=== PATIENT | female | born 1995 | race Caucasian/White ===

== ENCOUNTER → 2021-03-08 | Outpatient (CLI) | payer OTHER, SELFPAY | END | disposition home or self-care (01) | LOC: LABSPEC 03-09 09:50 | PROVIDERS: Visit Provider Obstetrics & Gynecology | DX: Z36.85 Encounter for antenatal screening for Streptococcus B (principal) | CPT/HCPCS: 87081 ==

== ENCOUNTER 2021-04-01 07:40 | Outpatient (CLI) | payer SELFPAY, OTHER ==
[2021-04-01 07:50] VITALS: BMI 29.2
[2021-04-01 08:03] VITALS: BP 124/81; PULSE 83; TEMP 36.3
[2021-04-01 08:04] VITALS: BP 124/81; PULSE 83; TEMP 36.3; O2SAT 100
[2021-04-01 10:23] VITALS: BP 127/85; PULSE 75; TEMP 36.3
--- NOTE | 2021-04-03 09:49 | OB.TRI.NOTE ---
HPI - General HPI Narrative CARTER ARIAS, is a 25 F who presents at 39 weeks 3-day gestation with contractions concerned that she might be in labor. care has been remarkable for a prior section and she desires to have a vaginal after . PFSH PFSH Allergy/AdvReac Type Severity Reaction Status Date / Time No Known Allergies Allergy Verified 04/01/21 07:51 NST FHR Rate Baby A NST Reactive:: Yes FHR Category:: Category I Uterine Activity:: Marked activity noted but diminished over several hours Assessment & Plan (1) False labor, antepartum: PLAN: 39 weeks 3 days gestation with false labor. Reactive nonstress test. No change in cervix after monitoring for several hours and contractions decreased. Discharged home with routine labor instructions.
== END 2021-04-01 11:50 | disposition home or self-care (01) ==
LOC: WPOUT 07:49 → WP 07:50
PROVIDERS: Visit Provider Obstetrics & Gynecology
DX: O47.1 False labor at or after 37 completed weeks of gestation (principal); O34.219 Maternal care for unspecified type scar from previous cesarean delivery; Z3A.39 39 weeks gestation of pregnancy
CPT/HCPCS: 59025; 59050; 99218; G0378

== ENCOUNTER 2021-04-08 05:00 | Inpatient (IN) | payer SELFPAY, OTHER ==
[2021-04-08] VITALS (16 sets, daily range): BP systolic 96–124; BP diastolic 56–85; PULSE 64–99; RESP 14–18; TEMP 36.6–37.2; O2SAT 94–100; BMI 29.3
[2021-04-08] MEDS: Lactated Ringers 1,000 ML 999 ML IV (05:30)
[2021-04-08 05:53] LABS: Absolute Lymphocyte Count 1.96 X10^3/uL (0.83-4.51); Absolute Neutrophil Count 4.9 X10^3/uL (2.0-7.7); Basophil# 0.03 X10^3/uL; Basophil% 0.4 % (0-1); Eosinophil# 0.04 X10^3/uL; Eosinophils% 0.5 % (0-5); Hemoglobin 13.1 g/dL (12.0-15.0); Lymphocyte # 1.96 X10^3/ul (0.83-4.51); Lymphocyte % 26.6 % (19-41); Mean Corp Hgb Conc 34.5 g/dL (32-36); Mean Corpuscular Hgb 32.8 pg (27.0-32.0); Mean Corpuscular Volume 95.2 fL (81-99); Mean Platelet Vol. 12.1 fl (6.2-12.0); Monocyte% 5.4 % (0-10); NRBC Flagged by Analyzer 0 % (0-5); Neutrophil # 4.91 X10^3/uL (2.7-7.7); Neutrophil % 66.6 % (47-70); Platelet Count 165 K/mm3 (150-450); RBC Distribution Width CV 13.4 % (11.6-14.6); RBC Distribution Width SD 46.8 fl (35.1-43.9); Red Blood Count 3.99 M/mm3 (4.2-5.4); White Blood Count 7.4 K/mm3 (4.4-11.0)
[2021-04-08] MEDS: Acetaminophen 500 MG Tablet 1000 MG PO ×4 (06:39→23:25)
[2021-04-08] MEDS: Lactated Ringers 1,000 ML 150 ML IV (06:41)
[2021-04-08] MEDS: Sodium Citrate/Citric Acid 30 ML UDC PO (06:41)
--- NOTE | 2021-04-08 07:27 | PCM.HP.BLA ---
History and Physical Date of Admission: 04/08/21 [facility] [place] PHYSICAL [place]04/08/2021) Name: CARTER ARIAS History of this : This is a 25 year old [id number] presents at 40 wks + 3 days gestation for repeat . OB Physician: Lang Anguiano MD [place]'s Physician: Dr. Dc ...................................................................... : 1995 Age: 25 Address: [address] [place] [address] Phone: H) [phone] Insurance Carrier: [employer] [id number] Emergency Contact: ALVIN HUGO [phone] ...................................................................... Final ARMANDO: 04/05/21 By Ultrasound: PARITY: (G-Total Pregnancies P-Fullterm,Premature,Induced AB,Spont AB, Ectopics, Multiple,Living) ARMANDO CONFIRMATION: By LMP: 06/29/20 Final ARMANDO: 04/05/21 OB PROBLEM LIST: Daughter PKU Positive is Rh Negative (Result scanned) Does NOT need Rhogam Wants --then decided to have repeat ALLERGIES: No Known Allergies MEDICATIONS: [place] 3-6-9 Fatty Acids 400 mg-400 mg-200 mg capsule One capsule by mouth daily Tablet 28 mg iron-800 mcg One tablet by mouth daily SOCIAL HISTORY: Smoking - denies smoking Alcohol Use - denies drinking Diet - balanced Diet Exercise - none Employer - [employer] Job Description - Illicit Drug Use - denies use of street drugs Sexual Activity - Spouse-Sig Other Name - Erik Arias Spouse-Sig Other Occupation - Construction Spouse-Sig Other Phone No - W [phone] Children Name(s) - Rima + Shasha (Twins) 2019 PRIOR DELIVERY HISTORY DEL DATE GEST LAB WT LB WT OZ TYPE ANES LABOR TX 01 Oct 20 8 0 0 0 Vag unknown No 18 Apr 19 37 0 7 1 C-Sec Spinal No ANTEPARTUM FLOW CHART VISIT GE RTC FU F F NE U U DATE WK MD WKS HT PN HR M SS BP ED WT NE GL D EF ST __ ____ ___ __ __ ___ __ __ __ ___ __ __ __ ___ __ Apr JMW 1 37 V + + 104/62 sl 166 - - 4 75 -2 Mar JMW 1 38 V + + 120/70 sl 166 - - 1+ 50 -2 Mar JMW 1 38 + + 110/62 sl 165 - - S Mar JMW 1 37 + + 100/62 sl 162 - - 07 Mar JMW 1 36 V + + 110/64 sl 158 tr - ft 50 -2 Jan JMW 2 34 + + 114/66 sl 162 - - Jan JMW 3 31 + + 92/60 0 156 - - 12 Jan 27 JMW 3 28 + + 115/76 0 149 - 1+ Nov 21 JMW 5 22 + + 114/68 0 145 - - ANTEPARTUM NOTE(S): Apr 05 2021: Ctxs-occas, Low Pressure Mar 31 2021: Ctxs-occas, Good FM Mar 22 2021: doing well, Good FM Mar 15 2021: doing well, declines cervix check Mar 08 2021: Doing well, GBS and LARC today Feb 22 2021: doing well, swelling RLE>LLE Feb 01 2021: Good FM,Feeling Well Jan 11 2021: CBC,OGCt & Antibody Screen Drawn Today,Good FM Nov 30 2020: Doing Well, Glucola given COMPREHENSIVE ANTEPARTUM NOTE(S): Mar 22 2021: Carter is 38weeks, here for PNV. Positve movement. slight edema. Doing well. no questions or complaints. BR Mar 14 2021: H taken to OB. tkg Jan 11 2021: Carter presents here today at 28 wks with Good FM and due for 50 gm OGCT, CBC and Antibody screen, with same drawn without problems via undersigned with 23g x 1 attempt. No Rhogam needed as her spouse is Rh Negative as well with result scanned to chart. BARB Nov 30 2020: NOB TELE VISIT this morning. Carter is a 25 yr old Gr 3, P2 (Twins), SAB 1 new pt to our practice as a referral from Dr Lang Dc. She is an lives w/he and their twin daughters. Hx regular monthly periods and by LMP 06/29/20 (best guess), she would be 22 wks. States she thinks she first felt FM 18-19 wks, feeling FM daily now. Hx C/S 07/18/18. Twin gestation, twin A Breech REVIEW OF SYSTEMS: GENERAL - Denies fever, or chills SKIN - Denies rash, new skin lesions, or change in moles EYES - Denies blurred vision, or change in visual acuity EARS - Denies ear pain, or difficulty hearing NOSE - Denies nasal congestion, discharge, or bleeding MOUTH - Denies sore throat, or difficulty swallowing NECK - Denies pain or swelling RESPIRATORY - Denies shortness of breath, cough, wheezing CARDIOVASCULAR - Denies palpitations, chest pain, orthopnea, PND, peripheral edema, syncope or claudication GASTROINTESTINAL - Denies nausea, vomiting, diarrhea, constipation, Denies abdominal pain, melena and or bright red blood GENITOURINARY - Denies dysuria, frequency of urination, urgency, or hesitancy MUSCULOSKELETAL - Denies joint or muscle pain, or back pain NEUROLOGICAL - Denies localized numbness, weakness, or tingling PSYCHIATRIC - Denies depression, anxiety, substance abuse or suicide attempts ENDOCRINE - Denies heat or cold intolerance, weight loss or gain, increasing thirst HEMATO-IMMUNOLOGIC - Denies easy bruising, bleeding, oral ulcerations or recurrent infections GENETICS SCREENING: Age 35+ years: No Thalassemia: No Neural Tube Defect: No Down Syndrome: No JENNIFER-SACHS: No Sickle Cell Disease: No Hemophilia: No Musc. Dystrophy: No Cystic Fibrosis: No-declines screening [place] Chorea: No Mental Retardation: Yes Fragile X: No Other genetic: No Other defects: No SABs/still births: Yes Drugs since LMP: Amoxicillin Comments: SAB 01/2020 INFECTION HISTORY: High risk AIDS: No High risk Hepatitis: No Exposed to TB: No Exposed to Herpes: No Rash/viral illness since LMP: No History of STD: No MENSTRUAL HISTORY: *Menses Amount/Duration: 6-7 DAYSMenses Regularity: RegularMenarche (Age Onset): 12* PAST SUMMARY: PARITY: 1. Total Pregnancies............ 3 2. Full Term Pregnancies........ 0 3. Premature.................... 0 4. Abortions - Induced.......... 0 5. Abortions - Spontaneous...... 1 6. Ectopics..................... 0 7. Multiple Births.............. 1 8. Living Children.............. 2 PAST #1: Date of :.................. 07/18/18 Gestation Weeks:................ 37 Length of labor(hours):......... 0 Sex:............................ F Weight-lbs:............... 7 Weight-oz:................ 1 Type of Delivery:............... C-Sect Type of Anesthesia:............. Spinal Place of Delivery:.............. [facility] Treatment of Labor?:.... No Comment: TWIN B 6 # 4 OZ, TWIN A BREECH PAST #2: Date of :.................. 01/01/20 Gestation Weeks:................ 8 Length of labor(hours):......... 0 Sex:............................ Weight-lbs:............... 0 Weight-oz:................ 0 Type of Delivery:............... Vag Type of Anesthesia:............. unknown Place of Delivery:.............. [facility] Treatment of Labor?:.... No Comment: SAB PHYSICAL EXAMINATION General Appearence: 25 yo female in no acute distress Vital Signs: AF, VSS Heart: RRR without rubs or gallops Lungs: CTA x 2 Breasts: deferred Abdomen: gravid Pelvis: Cervix: Presentation: cephalic Station: Fetus: Size: AGA Movement: present Heart: present LAB TEST(S) ORDERED SINCE:07/09/20 03/12/2021 RULE OUT BETA STREP (GRP. B) 01/11/2021 GLUCOSE CHALLENGE 50GM 1 HOUR 01/11/2021 CBC + DIFF 01/11/2021 BB ANTIBODY SCREEN 11/29/2020 Panel-Thyroid 11/29/2020 Initial OB Labs 11/29/2020 CBC w/Diff == ==== Order Observation Description Value Ref_Range A* Site == ==== RULE OUT BETA S NOTE [facility] BB ANTIBODY SCR NOTE [facility] BB ANTIBODY SCR ANTIBODY SCR negative negative [facility] GLUCOSE CHALLEN NOTE [facility] GLUCOSE CHALLEN GLUCOSE CHALLENGE 50GM 1 [facility] GLUCOSE CHALLENGE 50 GMS 1 HOUR GLUCOSE CHALLEN GLUCOSE 1HR 104 mg/dl 70 - 140 [facility] CBC + DIFF NOTE [facility] CBC + DIFF CBC + DIFF [facility] CBC-COMPLETE BLOOD COUNT CBC + DIFF WBC 8.4 x 10EE3/UL 4.5 - 10.8 [facility] + [facility]FF RBC 3.53 x 10EE6/UL 4.10 - 5.30 L [facility] CBC + DIFF HEMOGLOBIN 12.0 g/dl 12.0 - 16.0 [facility] CBC + DIFF HEMATOCRIT 32.6 % 34.0 - 46.0 L [facility] CBC + DIFF MCV 92 fl 80 - 99 [facility] CBC + DIFF MCH 34 pg 27 - 33 H [facility] CBC + DIFF MCHC 37 X10 3 32 - 36 H [facility] CBC + DIFF RDW/CV 14.9 % 12.0 - 15.6 [facility] CBC + DIFF PLATELET 200 x10EE3/UL 150 - 450 [facility] CBC + DIFF MPV 9.1 fl 6.6 - 10.5 [facility] AUTOMATED DIFFERENTIAL CBC + DIFF NEUT % 79.3 % 46.0 - 76.0 H [facility] CBC + DIFF LYMPH % 15.1 % 20.0 - 45.0 L [facility] CBC + DIFF MONOS % 4.8 % 0.0 - 10.0 [facility] CBC + DIFF EO % 0.4 % 0.0 - 7.0 [facility] CBC + DIFF BASO % 0.4 % 0.0 - 2.0 [facility] CBC + DIFF LYMPH # 1.30 x10EE3/UL 0.80 - 2.80 [facility] CBC + DIFF NEUT # 6.60 x10EE3/UL 1.50 - 7.10 [facility] CBC + DIFF MONO # 0.40 x10EE3/UL 0.20 - 1.00 [facility] CBC + DIFF EO # 0.00 x10EE3/UL 0.00 - 0.50 [facility] CBC + DIFF BASO # 0.00 x10EE3/UL 0.00 - 0.10 [facility] CBC + DIFF MANUAL DIFF N/A [facility] + DIFF MORPHOLOGY N/A [facility] {CD] Initial OB Labs Blood Type A Initial OB Labs Rh Type negative Initial OB Labs Antibody Screen non reactive Negative Initial OB Labs Hemoglobin Initial OB 12.8 Initial OB Labs Hematocrit Initial OB 38.9 Initial OB Labs PLT 210 Initial OB Labs Rubella 1.53 Immune Initial OB Labs VDRL non reactive Non Reactive Initial OB Labs HBsAg non reactive Negative Initial OB Labs Urine Protein neg Negative Initial OB Labs Urine Glucose neg Negative Panel-Thyroid Free T-4 Index 1.6 mg/dl 0.8-1.8 Panel-Thyroid Thyroid Stimulating Horm 0.01 micro IU/ml 0.4-5.5 CBC w/Diff White Blood Cell Count 8.2 thous/mcl 3.8-10.8 CBC w/Diff Red Blood Cell Count 4.23 mill/mcl 3.90-5.20 CBC w/Diff Hemoglobin 12.8 g/dl 12.0-15.6 CBC w/Diff Hematocrit 38.9 % 35.0-46.0 CBC w/Diff MCV 92 FL 80.0-100.0 CBC w/Diff MCH 30.3 PG 27.0-33.0 CBC w/Diff MCHC 32.9 % 32.0-36.0 CBC w/Diff RDW 12.8 % 9.0-15.0 CBC w/Diff Platelet Count 210 thous/mcl 150-450 CBC w/Diff Absolute Neutrophils 6503 cells/mcl 4650-2131 CBC w/Diff Neutrophils 79.3 % CBC w/Diff Absolute Lymphocytes 1320 cells/mcl 850-4100 CBC w/Diff Lymphocytes 16.1 % CBC w/Diff Absolute Monocytes 353 cells/mcl 200-1100 CBC w/Diff Monocytes 4.3 % CBC w/Diff Absolute Eosinophils 8 cells/mcl 50-550 CBC w/Diff Eosinophils 0.1 % CBC w/Diff Absolute Basophils 16 cells/mcl 0-200 CBC w/Diff Basophils 16 % Group B Beta Streptococcus is not isolated. == ==== Impression /Plan: 40 wks + 3 days intrauterine with prior who desires repeat . Discussed risk benefits alternatives and all questions were answered. Preparations in progress for delivery.
--- NOTE | 2021-04-08 07:32 | OP.PCM_ITS ---
Maternal Data Information Final ARMANDO: 04/05/21 Final ARMANDO Source: US <20 weeks Gestational age: 40 weeks 3 days Details Operative Information Date of Procedure: 04/08/21 Pre-Operative Diagnosis: Prior Section Post-Operative Diagnosis: Prior Section Classification: Scheduled Type of Anesthesia: Spinal (With Duramorph) Anesthesiologist: Guanaco Quigley Antibiotic Given: Ancef 2 grams IV x1 Drain: Anderson to straight drain Estimated Blood Loss: 500 cc Fluids Replaced: Crystalloid Findings Description of Procedure: Surgeon: Lang Anguiano MD, FACOG Procedure: Repeat Low Transverse Cervical Caesarean Section Indication: This is a 25-year-old who presents for her second at 40+ weeks gestation. care has otherwise been uneventful. The patient has been counseled regarding the risk and indications of this procedure including the possibility of bleeding infection and injury to surrounding structures such as bowel bladder. All questions were answered. Procedure: Patient was taken to the operating room where after spinal anesthesia was placed, the patient was prepped and draped in usual sterile fashion and a Anderson catheter was placed. The abdomen was entered through the patient's prior Pfannenstiel incision and peritoneum was entered bluntly. After developing a b ladder flap on the lower uterine segment a low transverse incision was made on the uterus and head was easily delivered onto the operative field the nose mouth and oropharynx were bulb suctioned. Subsequently a viable male infant was born with Apgars of 9/9. The was noted to cry move all extremities vigorously on the operative field. The umbilical cord was doubly clamped and ligated and handed to the nursery personnel who were present for the delivery. Placenta was delivered and noted to be 3 vessels and normal. Uterus was exteriorized and remaining placental tissue was removed. The uterus was then closed in 2 layers first with running locked 0 Vicryl suture followed by a second imbricating layer with 0 Vicryl suture. 0 Vicryl suture was then used in a horizontal mattress interrupted fashion to affect final hemostasis of the uterine incision line. Normal fallopian tubes and ovaries were visualized and the uterus was returned to the pelvis. Hemostasis was noted and rectus abdominis muscles were reapproximated in the midline with interrupted Number 0 Vicryl suture in a horizontal mattress fashion. Fascia was closed with running Number 1 PDS Strata fix suture. Subcutaneous tissue was irrigated with copious amounts of saline solution and then closed with running 3-0 Vicryl suture. Skin was closed with 4-0 monocryl suture in a running subcuticular fashion. Steri strips and a Mepilex dressing were placed across the incision. The patient tolerated the procedure well and was taken to the recovery room in satisfactory condition. Sponge, needle, and instrument counts were all reportedly correct. EBL was less than 500 cc. Ancef 2 gms IV was given prior to the procedure. Spicemen to Pathology: None Presentation: Positive for Vertex Amniotic Fluid Description: Clear Placental Delivery Description: Spontaneous Placenta Disposition: [facility] Cord Vessel Description: 3 Vessels Cord Entanglement: None Infant A Gender: Male (1 minute): 9 (5 minute): 9 Complications Risks of Surgery Discussed w/Patient: Bleeding, Infection and Injury to surrounding structure(s) including bowel and bladder Complications: None
[2021-04-08] MEDS: Methylergonovine 0.2 MG/ML Ampul IM (08:03)
[2021-04-08 08:50] LABS: Chlamydia Trachomatis by PCR Negative (Negative); Neisserai gonorrhoeae by PCR Negative (Negative); Probe Check PASS; Sample Adequacy Control PASS; Specimen Processing Control PASS
[2021-04-08] MEDS: Oxytocin 30 units/NS 500 ml 30 UNITS/500 ML IV.SOLN 167 UNITS IV (09:00)
[2021-04-08] MEDS: Ketorolac 30 MG/ML Syringe IV ×3 (09:49→21:09)
[2021-04-08] MEDS: 0.9% Saline Lock 10 ML Syringe IV ×2 (09:49→21:09)
[2021-04-08] MEDS: Lactated Ringers 1,000 ML 100 ML IV (12:03)
[2021-04-08 14:32] LABS: HIV - WCH Non-Reactive (Nonreactive); Hepatitis C Antibody Non-Reactive (Nonreactive)
[2021-04-08] MEDS: Senna/Docusate Sodium 1 Tablet PO (15:11)
[2021-04-08] MEDS: Cefazolin 1 GM/50 ML BAG IV ×2 (15:12→23:24)
[2021-04-09 03:27] VITALS: BP 92/53; PULSE 77; RESP 18; TEMP 36.6
[2021-04-09] MEDS: 0.9% Saline Lock 10 ML Syringe IV (03:29)
[2021-04-09] MEDS: Ketorolac 30 MG/ML Syringe IV (03:29)
[2021-04-09] MEDS: Acetaminophen 500 MG Tablet 1000 MG PO ×3 (05:40→18:29)
[2021-04-09 06:11] LABS: Hematocrit 34.7 % (37-47); Hemoglobin 11.6 g/dL (12.0-15.0); Mean Corp Hgb Conc 33.4 g/dL (32-36); Mean Corpuscular Hgb 32.7 pg (27.0-32.0); Mean Corpuscular Volume 97.7 fL (81-99); Mean Platelet Vol. 11.4 fl (6.2-12.0); Platelet Count 136 K/mm3 (150-450); RBC Distribution Width CV 13.2 % (11.6-14.6); RBC Distribution Width SD 47.2 fl (35.1-43.9); Red Blood Count 3.55 M/mm3 (4.2-5.4); White Blood Count 7.9 K/mm3 (4.4-11.0)
[2021-04-09 08:57] VITALS: BP 105/71; PULSE 80; RESP 16; TEMP 36.9; O2SAT 98
[2021-04-09] MEDS: Senna/Docusate Sodium 1 Tablet PO (09:53)
[2021-04-09] MEDS: Ibuprofen 600 MG Tablet PO ×3 (09:53→21:01)
--- NOTE | 2021-04-09 10:08 | PN.OBGYN_ITS ---
Subjective Subjective No overnight complaints Objective Data Objective Data Vital Signs: Vital Signs Temp Pulse Resp BP Pulse Ox 98.5 F 80 16 105/71 98 04/09/21 08:57 04/09/21 08:57 04/09/21 08:57 04/09/21 08:57 04/09/21 08:57 Oxygen Flow Rate (L/min) 2 Oxygen Delivery Method Room Air Weight: 165 lb 12.8 oz Body Mass Index (BMI) 29.3 Intake & Output: Intake and Output for Last 24 Hours 04/07/21 04/08/21 04/09/21 23:59 23:59 23:59 Intake Total 2874.17 / 2874.17 50 / 50 Output Total 2425 / 2425 Balance 449.17 / 449.17 50 / 50 Lab / Micro Data Result Diagrams: 04/09/21 05:45 Labs: Laboratory Results - last 24 hr 04/08/21 12:48: Hepatitis C Antibody Non-Reactive, HIV 1&2 Antibody Non-Reactive 04/09/21 05:45: WBC 7.9, RBC 3.55 L, Hgb 11.6 L, Hct 34.7 L, MCV 97.7, MCH 32.7 H, MCHC 33.4, RDW Std Deviation 47.2 H, RDW Coeff of Angie 13.2, Plt Count 136 L, MPV 11.4 Micro: Microbiology 04/08/21 05:30 Nasal Secretion SARS-CoV-2 Antigen (Rapid) - Final Physical Exam Const alert, oriented x3, no apparent distress, average body habitus, healthy appearing and well nourished HEENT normocephalic and moist oral mucous membranes Head and Scalp: atraumatic Face and Sinus: normal facial exam Eyes PERRL Neck full ROM Resp normal respiratory effort, no retractions and no use of accessory muscles GI GI Narrative: Soft, nontender, uterus firm and below umbilicus. Bandage clean dry and intact Extremity normal to inspection Psych mental status grossly normal, affect normal, speech normal and activity/motor behavior normal Assessment & Plan (1) delivery delivered: PLAN: Postoperative day 1 status post repeat section. Breast- feeding. Pain well controlled. Likely home tomorrow
[2021-04-09 14:50] VITALS: BP 96/57; PULSE 78; RESP 16; TEMP 36.8; O2SAT 96
[2021-04-09 20:50] VITALS: BP 106/67; PULSE 85; RESP 16; TEMP 36.3; O2SAT 96
[2021-04-10] MEDS: Acetaminophen 500 MG Tablet 1000 MG PO ×2 (00:24→06:29)
[2021-04-10] MEDS: Ibuprofen 600 MG Tablet PO ×2 (02:53→09:19)
[2021-04-10 03:00] VITALS: BP 110/66; PULSE 98; RESP 16; TEMP 36.8; O2SAT 94
[2021-04-10 08:00] VITALS: BP 103/69; PULSE 82; RESP 16; TEMP 36.7; O2SAT 96
[2021-04-10] MEDS: Senna/Docusate Sodium 1 Tablet PO (09:19)
--- NOTE | 2021-04-10 10:52 | PCM.DC.BLA ---
Discharge Summary Date of Admission: 04/08/21 Date of Discharge: 04/10/21 Summary: Patient arrived on 04/08/2021 for repeat section scheduled. Underwent section on 04/08/2021. Routine postoperative recovery. Discharge home on 04/10/2021 Physical Exam Const alert, oriented x3, average body habitus, no limitations, healthy appearing and well nourished HEENT normocephalic Eyes PERRL Neck full ROM Resp normal respiratory effort, normal air movement, no retractions and no use of accessory muscles GI GI Narrative: Soft, nontender, bandage clean dry and intact Extremity normal to inspection, full ROM and normal capillary refill Psych mental status grossly normal, thought process normal, cooperative, affect normal and speech normal Meaningful Use Info Meaningful Use Diagnoses (Choose all that apply): None applicable Discharge Plan Admission Admit Date/Time: 04/08/21 05:00 Primary Reason for Your Visit: Schedule c section Attending Provider: Lang Anguiano Instructions Additional Instructions / Restrictions: Regular diet. Okay to shower. No tub baths for 2 weeks. No intercourse for 4 to 6 weeks. No lifting over 25 pounds for 2 to 3 weeks. Call if fevers, chest pain, shortness of breath, increased bleeding. Follow-up 2 weeks postoperatively, follow-up 4 to 6 weeks Discharge Orders/Prescriptions Prescriptions: New oxycodone 5 mg Tablet 5 mg PO Q6H PRN PRN (Reason: Pain Score 6-10) 4 Days Qty: 16 RF: 0 Discontinued 1 tab PO/SL DAILY RF: 0 Disposition Disposition (needs filled in before D/C Order can be placed): Home, Self Care
--- NOTE | 2021-04-10 10:53 | PCM.PN.OB ---
Subjective Subjective No overnight complaints Objective Data Objective Data Vital Signs: Vital Signs Temp Pulse Resp BP Pulse Ox 98.0 F 82 16 103/69 96 04/10/21 08:00 04/10/21 08:00 04/10/21 08:00 04/10/21 08:00 04/10/21 08:00 Oxygen Flow Rate (L/min) 2 Oxygen Delivery Method Room Air Weight: 165 lb 12.8 oz Body Mass Index (BMI) 29.3 Intake & Output: Intake and Output for Last 24 Hours 04/08/21 04/09/21 04/10/21 23:59 23:59 23:59 Intake Total 2874.17 / 2874.17 50 / 50 Output Total 2425 / 2425 Balance 449.17 / 449.17 50 / 50 Lab / Micro Data Result Diagrams: 04/09/21 05:45 Micro: Microbiology 04/08/21 05:30 Nasal Secretion SARS-CoV-2 Antigen (Rapid) - Final Physical Exam Const alert, oriented x3, no apparent distress, average body habitus, healthy appearing and well nourished HEENT normocephalic and moist oral mucous membranes Head and Scalp: atraumatic Face and Sinus: normal facial exam Neck full ROM Resp normal respiratory effort, no retractions and no use of accessory muscles GI GI Narrative: Soft, nontender, bandage clean dry and intact Extremity normal to inspection, full ROM and no clubbing, cyanosis or edema Psych mental status grossly normal, affect normal, speech normal and activity/motor behavior normal Assessment & Plan (1) delivery delivered: PLAN: Postoperative day 2. Pain well controlled. Breast-feeding. Okay to discharge home today.
== END 2021-04-10 12:15 | disposition home or self-care (01) | DRG 788 ==
PROVIDERS: Admitting Provider Obstetrics & Gynecology; Visit Provider Obstetrics & Gynecology
PROC: 10D00Z1 Extraction of Products of Conception, Low, Open Approach (ICD-10-PCS; CPT 59514; principal; 2021-04-08 07:15)
DX: O65.5 Obstructed labor due to abnormality of maternal pelvic organs (principal); O34.211 Maternal care for low transverse scar from previous cesarean delivery; Z37.0 Single live birth; Z3A.40 40 weeks gestation of pregnancy
CPT/HCPCS: 59025; 59050; 85025; 85027; 86703; 86803; 86850; 86900; 86901; 87426; 87491; 87591; 99218; J7120; A4216; G0378